=== PATIENT | female | born 1950 ===

== ENCOUNTER 2023-09-14 12:37 | Outpatient (REF) | payer MEDICARE, SELFPAY ==
[2023-09-14 15:20] LABS: Anion Gap 9.5 mmol/L (3-11); BUN 20 mg/dL (7-18); CO2 24.5 mmol/L (21.0-32.0); CREATININE 0.7 mg/dL (0.55-1.02); Calcium 9.4 mg/dL (8.5-10.1); Calculated LDL 143 mg/dL (<100); Chloride 104 mmol/L (98-107); Cholesterol 234 mg/dL (<200); Estimated GFR 91.83 (mL/min/1.73m2); Glucose 104 mg/dL (74-106); HDL Cholesterol 83 mg/dL (40-60); Potassium 4.7 mmol/L (3.5-5.1); Sodium 138 mmol/L (136-145); Triglyceride 41 mg/dL (<150)
== END 2023-09-14 12:38 | disposition home or self-care (01) ==
LOC: NCHCN 12:37
PROVIDERS: PCP Family Medicine; Visit Provider Family Medicine
DX: Z13.220 Encounter for screening for lipoid disorders (principal); Z13.1 Encounter for screening for diabetes mellitus
CPT/HCPCS: 80048; 80061

== ENCOUNTER 2023-12-14 16:12 | Outpatient (REF) | payer MEDICARE, SELFPAY ==
[2023-12-14 14:37] LABS: HCT 41.5 % (36.0-46.0); HGB 13.6 g/dL (11.2-15.7); MCH 32.3 pg (27.0-33.0); MCHC 32.8 % (32.0-36.0); MCV 99 fL (80-95); MPV 11.5 fL (8.0-11.0); Platelet Count 242 10^3/uL (130-400); RBC 4.21 10^6/uL (3.93-5.22); RDW 11.9 % (11.7-14.6); RDW-SD 43.5 fL
[2023-12-14 15:16] LABS: Folate 17.1 ng/mL (8.6-20.0); Vitamin B12 534 pg/mL (193-986)
== END 2023-12-14 16:13 | disposition home or self-care (01) ==
LOC: NCHCN 16:12
PROVIDERS: PCP Family Medicine; Visit Provider Family Medicine
DX: G60.9 Hereditary and idiopathic neuropathy, unspecified (principal)
CPT/HCPCS: 85027; 82607; 82746